=== PATIENT | female | born 1970 | race Caucasian/White ===

== ENCOUNTER → 2017-01-31 | Outpatient (CLI) | payer BC ==
--- NOTE | 2017-02-01 08:58 | MM ---
Reason for exam: screening (asymptomatic). Last mammogram was performed 1 year ago. Physical Findings: A clinical breast exam by your physician is recommended on an annual basis and results should be correlated with mammographic findings. MG Screening Mammo w CAD Bilateral CC and MLO view(s) were taken. Prior study comparison: January 31, 2016, bilateral MG screening mammo w CAD. January 07, 2002, bilateral diagnostic mammogram. The breast tissue is extremely dense which could obscure a lesion on mammography. There is no discrete abnormality. No significant changes when compared with prior studies. ASSESSMENT: Negative, BI-RAD 1 RECOMMENDATION: Routine screening mammogram of both breasts in 1 year.
== END | disposition home or self-care (01) ==
LOC: RADMAMWWP 09:40
PROVIDERS: ATTEND Family Medicine
DX: Z12.31 Encounter for screening mammogram for malignant neoplasm of breast (principal)

== ENCOUNTER → 2018-02-12 | Outpatient (CLI) | payer BC ==
--- NOTE | 2018-02-12 14:07 | MM ---
Reason for exam: additional evaluation requested from prior study. Last mammogram was performed 1 year ago. History: Family history of breast cancer in mother at age 66. Physical Findings: Nurse did not find any significant physical abnormalities on exam. MG 3D Diag Mammo W/Cad KIKO Bilateral CC and MLO view(s) were taken. Prior study comparison: January 31, 2017, bilateral MG screening mammo w CAD. January 31, 2016, bilateral MG screening mammo w CAD. The breast tissue is heterogeneously dense. This may lower the sensitivity of mammography. Benign appearing bilateral calcifications. No suspicious abnormality. Stable left superior breast asymmetry. No significant new findings when compared with previous films. These results were verbally communicated with the patient and result sheet given to the patient on 02/12/18. ASSESSMENT: Benign, BI-RAD 2 RECOMMENDATION: Routine screening mammogram of both breasts in 1 year.
== END | disposition home or self-care (01) ==
LOC: RADMAMWWP 13:03
PROVIDERS: ATTEND Family Medicine
DX: N63.10 Unspecified lump in the right breast, unspecified quadrant (principal)
CPT/HCPCS: 77062; 77066

== ENCOUNTER → 2023-03-20 | Outpatient (CLI) | payer BC ==
--- NOTE | 2023-03-21 20:14 | MM ---
Reason for Exam: Screening (asymptomatic). Last mammogram was performed 5 year(s) and 1 month(s) ago. Patient History: Menarche at age 11. First Full-Term at age 25. Postmenopausal. Patient has history of breast feeding. Maternal cousin had breast cancer at or over age 50. Mother had breast cancer, age 66. Risk Values: Abiola 5 year model risk: 2.2%. NCI Lifetime model risk: 16.1%. Prior Study Comparison: 01/31/2016 Bilateral Screening Mammogram, [facility]. 01/31/2017 Bilateral Screening Mammogram, [facility]. 02/12/2018 Bilateral Diagnostic Mammogram, [facility]. Tissue Density: The breast tissue is heterogeneously dense. This may lower the sensitivity of mammography. Findings: Analyzed By CAD. Asymmetric density central outer aspect of the right breast on the CC view middle depth is more defined. This may represent superimposition shadow but further evaluation is recommended. Otherwise, no significant change elsewhere within the breasts. Overall Assessment: Incomplete: need additional imaging evaluation, BI-RAD 0 Management: Special View Mammogram of both breasts. To include spot 3-D CC, 3-D CC rolled, and 3-D lateral views.. Targeted right breast ultrasound if any persisting abnormality. [facility] will attempt to contact patient to return for supplemental views and ultrasound if indicated. Electronically signed and approved by: Betito Higginbotham M.D. Radiologist
== END | disposition home or self-care (01) ==
LOC: RADMAMWWP 08:48
PROVIDERS: ATTEND Obstetrics & Gynecology
DX: Z12.31 Encounter for screening mammogram for malignant neoplasm of breast (principal); Z78.0 Asymptomatic menopausal state; Z80.3 Family history of malignant neoplasm of breast
CPT/HCPCS: 77063; 77067

== ENCOUNTER → 2023-03-27 | Outpatient (CLI) | payer BC ==
--- NOTE | 2023-03-27 10:31 | USB ---
Reason for Exam: Additional evaluation requested from abnormal screening. Patient History: Menarche at age 11. First Full-Term at age 25. Postmenopausal. Patient has history of breast feeding. Maternal cousin had breast cancer at or over age 50. Mother had breast cancer, age 66. Risk Values: Abiola 5 year model risk: 2.2%. NCI Lifetime model risk: 16.1%. Technique: Method: Targeted. Prior Study Comparison: 01/31/2017 Bilateral Screening Mammogram, [facility]. 02/12/2018 Bilateral Diagnostic Mammogram, [facility]. 03/20/2023 Bilateral MG 3D screening mammo w/cad, [facility]. Findings: The lateral section of the breast of the right breast, the axilla of the right breast and the retroareolar of the right breast were scanned. There is a hypoechoic area measuring 0.5 x 0.4 x 0.5 cm. This may be taller than wide contains an echogenic focus measuring 0.1 mm. This has some posterior shadowing. Corresponding calcifications within the breast in this region is not identified. No surgical clips are evident. Recommend ultrasound-guided core biopsy of this complex cyst. Overall Assessment: Suspicious, BI-RAD 4 Management: Ultrasound Core Biopsy of the right breast. A clinical breast exam by your physician is recommended on an annual basis and results should be correlated with mammographic findings. This exam should not preclude additional follow-up of suspicious palpable abnormalities. Results were given to the patient verbally at the time of exam. Electronically signed and approved by: Zachary Desai D.O. Radiologis
--- NOTE | 2023-03-27 10:34 | MM ---
Reason for Exam: Additional evaluation requested from abnormal screening. Last screening mammogram was performed less than 1 month ago. Patient History: Menarche at age 11. First Full-Term at age 25. Postmenopausal. Patient has history of breast feeding. Maternal cousin had breast cancer at or over age 50. Mother had breast cancer, age 66. Risk Values: Abiola 5 year model risk: 2.2%. NCI Lifetime model risk: 16.1%. Prior Study Comparison: 01/07/2002 Bilateral Diagnostic Mammogram, [facility]. 01/31/2016 Bilateral Screening Mammogram, [facility]. 01/31/2017 Bilateral Screening Mammogram, [facility]. 02/12/2018 Bilateral Diagnostic Mammogram, [facility]. 03/20/2023 Bilateral MG 3D screening mammo w/cad, [facility]. Tissue Density: Right: The breast tissue is heterogeneously dense. This may lower the sensitivity of mammography. Findings: Analyzed By CAD. Under compression the nodule appears to disperse. Minimal distortion may be present. It is unclear if this is related to prior lumpectomy. Recommend ultrasound for additional workup. Overall Assessment: Incomplete: need additional imaging evaluation, BI-RAD 0 Management: Diagnostic Breast Ultrasound of the right breast. A negative mammogram report should not preclude additional follow up of suspicious palpable abnormalities. Patient should continue monthly self breast exam. A clinical breast exam by your physician is recommended on an annual basis and results should be correlated with mammographic findings. Electronically signed and approved by: Juan Garcia DO
== END | disposition home or self-care (01) ==
LOC: RADMAMWWP 08:53
PROVIDERS: ATTEND Obstetrics & Gynecology
DX: R92.8 Other abnormal and inconclusive findings on diagnostic imaging of breast (principal); Z78.0 Asymptomatic menopausal state; Z80.3 Family history of malignant neoplasm of breast
CPT/HCPCS: 77061; 77065

== ENCOUNTER → 2023-04-18 | Outpatient (CLI) | payer BC ==
[2023-04-18 09:54] VITALS: BP 147/92; PULSE 61; RESP 16; TEMP 97.9
--- NOTE | 2023-04-18 10:25 | P.GSHP ---
History of Present Illness H&P Date: 04/18/23 Chief Complaint: abnormal right breast mammogram Siomara is a 51 year old white female seen in consultation for Dr. Basurto. She had a bilateral screening mammogrma on 03-20-23 which led to a right breast diagnositc mammogram and ultrasound on 03-27-23. This led to a r ight breast core biopsy on 04-10-23 which showed ADH. This was reviewed with DR. Zaragoza and ther is concern that the area biopsied may be separate form that seen on mammogram. She does not feel any lumps masses or nodules of concern in either breast. It had been about 5 years since her last mammogram. About 20 years ago she had a lump removed from her right breast it was benign. She has not had any recent trauma or infection in her breast. Caffeine: 3 cups coffee/day nicotine: none chocolate: none BCP: used them for about 10 years, stopped about 25 years ago hormones: none Family History: mother: breast cancer, diagnosed at 68 maternal cousin: breast cancer maternal uncle: bladder cancer maternal great aunt: breast cancer Hormonal History: menarche: 13 age at first : 15, breaset fed: yes menopause: last period 2020 hormones: none Surgical history: breast surgery right benign Medical History: none Social History: HEENT: Negative Alcohol: One drink per night; gin and tonic or wine Drugs: Negative - Constitutional Constitutional: Reports sweats - EENT Eyes: denies blurred vision, denies pain Ears: bilateral: tinnitus, deny: decreased hearing Ears, nose, mouth and throat: Reports headache, Denies sore throat - Breasts Breasts: bilateral: as per HPI - Cardiovascular Cardiovascular: Denies chest pain, Denies shortness of breath - Respiratory Respiratory: Denies cough, Denies 7 - Gastrointestinal Gastrointestinal: Denies abdominal pain, Denies diarrhea, Denies nausea, Denies vomiting - Genitourinary (Female) Genitourinary: Denies dysuria, Denies hematuria - Menstruation Menstruation: Reports postmenopausal - Musculoskeletal Comment: hand pain - Integumentary Integumentary: Denies pruritus, Denies rash - Neurological Neurological: Denies numbness, Denies weakness - Psychiatric Psychiatric: Reports anxiety, Reports depression - Endocrine Endocrine: Reports weight change - Hematologic/Lymphatic Comment: none - Allergic/Immunologic Allergic/Immunologic: Reports as per HPI Past Medical History Past Medical History: No Reported History History of Any Multi-Drug Resistant Organisms: None Reported Past Surgical History: Breast Surgery Additional Past Surgical History / Comment(s): breast excisional biopsy Right breast- benign Past Anesthesia/Blood Transfusion Reactions: No Reported Reaction Past Psychological History: Anxiety, Depression Smoking Status: Never smoker Past Alcohol Use History: Daily Additional Past Alcohol Use History / Comment(s): one drink nightly Past Drug Use History: None Reported Medications and Allergies Allergies Allergy/AdvReac Type Severity Reaction Status Date / Time codeine AdvReac Nausea Verified 04/18/23 09:44 Surgical - Exam Vital Signs Temp Pulse Resp BP Pulse Ox 97.9 F 61 16 147/92 98 04/18/23 09:46 04/18/23 09:46 04/18/23 09:46 04/18/23 09:46 04/18/23 09:46 - General no distress - Eyes normal ocular movement - ENT no hearing loss - Neck trachea midline - Respiratory normal respiratory effort - Cardiovascular Rhythm: regular Heart Sounds: normal: S1, S2 - Abdomen Abdomen: soft, non tender, no guarding, no rigid, no rebound - Integumentary normal turgor - Neurologic no disoriented, no combative - Musculoskeletal normal gait - Psychiatric oriented to time, oriented to person, oriented to place, speech is normal, memory intact Breast Exam: BRA: 34F inspection: Bilateral grade 2 ptosis Palpation: Right breast: Ecchymosis lateral aspect related to recent core biopsy, multiple positional exam no dominant masses or nodules of concern Right axilla: No adenopathy of concern Left breast: Multiple positional exam no dominant masses or nodules of concern Left axilla: No adenopathy of concern Results Mammogram and ultrasound reviewed personally with Dr. Higginbotham, there is concern that the clip is at the area of biopsy but discrete from the area initially seen on mammogram initiating the ultrasound is in the right breast no lesions of concern are noted in the left breast Assessment and Plan Assessment: Impression: Ultrasound core biopsy right breast atypical ductal hyperplasia Potential second spot of concern on mammogram on the right breast for which stereotactic core biopsy has been recommended Plan: Stereotactic 3-D core biopsy right breast Depending on results of this further recommendation to follow Secondary to the atypical ductal hyperplasia best Cipro at minimum be recommended for excision CC: Dr. Basurto
== END ==
LOC: WWCWWP 09:36
PROVIDERS: ATTEND Surgery
DX: N60.91 Unspecified benign mammary dysplasia of right breast (principal); Z80.3 Family history of malignant neoplasm of breast; Z88.5 Allergy status to narcotic agent

== ENCOUNTER → 2023-05-03 | Day surgery (SDC) | payer BC ==
--- NOTE | 2023-05-03 08:26 | P.PCN ---
Date of Procedure: 05/03/23 Preoperative Diagnosis: Radiographic abnormality right breast Postoperative Diagnosis: Same Procedure(s) Performed: Right breast stereotactic core biopsy Anesthesia: local Surgeon: Jackie Portillo Pathology: other (Breast tissue) Condition: stable Disposition: same day Indications for Procedure: Mammographic abnormality right breast Operative Findings: Radiographic specimen reveals 1 microcalcification Description of Procedure: The patient is a 52-year-old white female who is status post ultrasound-guided core biopsy of a radiographic abnormality in the right breast. There was question following the ultrasound core biopsy if this represented a mammographic abnormality originally seen and it was recommended that she undergo a 3-D stereo biopsy of the mammographic abnormality. The risks and benefits of the procedure were discussed with the patient. The patient was taken to the stereotactic core biopsy room. She was positioned in the 3-D stereo chair. A instrumentation and controls designer film was obtained. The instrumentation and controls designer film was reviewed with Dr. Redding and the area of concern was identified. The lesion was targeted. The breast was prepped using hexachlorophene. 20 mL of 1% lidocaine were used to anesthetize the area of concern. A 9-gauge vacuum-assisted core rotating biopsy needle was driven to the correct coordinates. A prefire film was obtained. The needle was noted to be in the correct location. The needle was fired. 6 core biopsy specimens were obtained. The patient began to feel faint and it was felt the procedure should be terminated. Secure marked topically clip was placed. Radiograph of the specimen did reveal one microcalcification. We will await results of the pathology. If there is still concern then needle localization of the area and resection of the operating room may be necessary. The patient will follow up next week.
--- NOTE | 2023-05-03 12:53 | MM ---
Date of Procedure: 05/03/23 Preoperative Diagnosis: Radiographic abnormality right breast Postoperative Diagnosis: Same Procedure(s) Performed: Right breast stereotactic core biopsy Anesthesia: local Surgeon: Jackie Portillo Pathology: other (Breast tissue) Condition: stable Disposition: same day Indications for Procedure: Mammographic abnormality right breast Operative Findings: Radiographic specimen reveals 1 microcalcification Description of Procedure: The patient is a 52-year-old white female who is status post ultrasound-guided core biopsy of a radiographic abnormality in the right breast. There was question following the ultrasound core biopsy if this represented a mammographic abnormality originally seen and it was recommended that she undergo a 3-D stereo biopsy of the mammographic abnormality. The risks and benefits of the procedure were discussed with the patient. The patient was taken to the stereotactic core biopsy room. She was positioned in the 3-D stereo chair. A commercial lines manager film was obtained. The commercial lines manager film was reviewed with Dr. Redding and the area of concern was identified. The lesion was targeted. The breast was prepped using hexachlorophene. 20 mL of 1% lidocaine were used to anesthetize the area of concern. A 9-gauge vacuum-assisted core rotating biopsy needle was driven to the correct coordinates. A prefire film was obtained. The needle was noted to be in the correct location. The needle was fired. 6 core biopsy specimens were obtained. The patient began to feel faint and it was felt the procedure should be terminated. Secure marked topically clip was placed. Radiograph of the specimen did reveal one microcalcification. We will await results of the pathology. If there is still concern then needle localization of the area and resection of the operating room may be necessary. The patient will follow up next week. MAL
== END ==
LOC: RADMAMWWP 07:09
PROVIDERS: ATTEND Surgery
DX: N60.21 Fibroadenosis of right breast (principal)
CPT/HCPCS: 88305; 19081; A4648

== ENCOUNTER → 2023-05-23 | Outpatient (CLI) | payer BC ==
--- NOTE | 2023-05-23 09:41 | P.PN ---
Subjective Progress Note Date: 05/23/23 Principal diagnosis: Atypical ductal hyperplasia right breast ultrasound-guided core biopsy/stereotactic core biopsy benign right breast History of Present Illness H&P Date: 05-23-23 Chief Complaint: abnormal right breast mammogram Siomara is a 51 year old white female seen in consultation for Dr. Basurto. She had a bilateral screening mammogrma on 03-20-23 which led to a right breast diagnositc mammogram and ultrasound on 03-27-23. This led to a right breast core biopsy on 04-10-23 which showed ADH. This was reviewed with DR. Zaragoza and there was concern that the area biopsied may be separate from that seen on mammogram. She was therefore recommended to undergo stereotactic core biopsy of a second area of concern. This was performed on [id number] and was felt to be benign concordant fibrocystic changes. She does not feel any lumps masses or nodules of concern in either breast. It had been about 5 years since her last mammogram. About 20 years ago she had a lump removed from her right breast it was benign. She has not had any recent trauma or infection in her breast. Caffeine: 3 cups coffee/day nicotine: none chocolate: none BCP: used them for about 10 years, stopped about 25 years ago hormones: none Family History: mother: breast cancer, diagnosed at 68 maternal cousin: breast cancer maternal uncle: bladder cancer maternal great aunt: breast cancer Hormonal History: menarche: 13 age at first : 15, breaset fed: yes menopause: last period 2020 hormones: none Surgical history: breast surgery right benign Medical History: none Social History: HEENT: Negative Alcohol: One drink per night; gin and tonic or wine Drugs: Negative - Constitutional Constitutional: Reports sweats - EENT Eyes: denies blurred vision, denies pain Ears: bilateral: tinnitus, deny: decreased hearing Ears, nose, mouth and throat: Reports headache, Denies sore throat - Breasts Breasts: bilateral: as per HPI - Cardiovascular Cardiovascular: Denies chest pain, Denies shortness of breath - Respiratory Respiratory: Denies cough - Gastrointestinal Gastrointestinal: Denies abdominal pain, Denies diarrhea, Denies nausea, Denies vomiting - Genitourinary (Female) Genitourinary: Denies dysuria, Denies hematuria - Menstruation Menstruation: Reports postmenopausal - Musculoskeletal Comment: hand pain - Integumentary Integumentary: Denies pruritus, Denies rash - Neurological Neurological: Denies numbness, Denies weakness - Psychiatric Psychiatric: Reports anxiety, Reports depression - Endocrine Endocrine: Reports weight change - Hematologic/Lymphatic Comment: none - Allergic/Immunologic Allergic/Immunologic: Reports as per HPI Past Medical History Past Medical History: No Reported History History of Any Multi-Drug Resistant Organisms: None Reported Past Surgical History: Breast Surgery Additional Past Surgical History / Comment(s): breast excisional biopsy Right breast- benign Past Anesthesia/Blood Transfusion Reactions: No Reported Reaction Past Psychological History: Anxiety, Depression Smoking Status: Never smoker Past Alcohol Use History: Daily Additional Past Alcohol Use History / Comment(s): one drink nightly Past Drug Use History: None Reported Medications and Allergies Allergies Allergy/AdvReac Type Severity Reaction Status Date / Time codeine AdvReac Nausea Verified 04/18/23 09:44 Objective - Constitutional General appearance: Present: cooperative - EENT Eyes: Present: EOMI ENT: Present: hearing grossly normal - Neck Neck: Present: normal ROM - Respiratory Respiratory: bilateral: CTA - Cardiovascular Rhythm: regular Heart sounds: normal: S1, S2 - Integumentary Integumentary: Present: normal turgor - Musculoskeletal Musculoskeletal: Present: gait normal - Psychiatric Psychiatric: Present: A&O x's 3, appropriate affect, intact judgment & insight - Additional findings Additional findings: Breast Exam: BRA: 34F inspection: Bilateral grade 2 ptosis Palpation: Right breast: No evidence of infection or hematoma at biopsy sites, no dominant masses or nodules of concern Right axilla: No adenopathy of concern Left breast: Multiple positional exam no dominant masses or nodules of concern Left axilla: No adenopathy of concern Assessment and Plan Assessment: Impression: Ultrasound-guided core biopsy right breast atypical ductal hyperplasia Sterotactic core biopsy right breast benign Plan: Right breast needle localization excisional biopsy butterfly coil clip area which was atypical ductal hyperplasia on core biopsy, possible onco-plastic tissue transfer Risk and benefits of the procedure discussed with the patient. Risks include but are not limited to bleeding, infection, reaction to the anesthetic. If the tissue specimen were to be discordant than possible further tissue acquisition may be necessary. CC: Dr. Cooper
[2023-05-23 09:46] VITALS: BP 142/93; PULSE 74; RESP 17; TEMP 97.9
== END ==
LOC: WWCWWP 09:13
PROVIDERS: ATTEND Surgery
DX: R92.8 Other abnormal and inconclusive findings on diagnostic imaging of breast (principal); N60.91 Unspecified benign mammary dysplasia of right breast; F32.A Depression, unspecified; F41.9 Anxiety disorder, unspecified; Z80.3 Family history of malignant neoplasm of breast; Z88.5 Allergy status to narcotic agent

== ENCOUNTER → 2023-07-05 | Outpatient (CLI) | payer BC ==
[2023-07-05 10:04] VITALS: BP 113/79; PULSE 65; RESP 18; TEMP 98
--- NOTE | 2023-07-05 10:40 | P.PN ---
Subjective Progress Note Date: 07/05/23 Atypical ductal hyperplasia right breast ultrasound-guided core biopsy/stereotactic core biopsy benign right breast History of Present Illness H&P Date:07-05-23 Chief Complaint: abnormal right breast mammogram Siomara is a 51 year old white female seen in consultation for Dr. Basurto. She had a bilateral screening mammogrma on 03-20-23 which led to a right breast diagnositc mammogram and ultrasound on 03-27-23. This led to a right breast core biopsy on 04-10-23 which showed ADH. This was reviewed with DR. Zaragoza and there was concern that the area biopsied may be separate from that seen on mammogram. She was therefore recommended to undergo stereotactic core biopsy of a second area of concern. This was performed on [id number] and was felt to be benign concordant fibrocystic changes. She does not feel any lumps masses or nodules of concern in either breast. It had been about 5 years since her last mammogram. About 20 years ago she had a lump removed from her right breast it was benign. She has not had any recent trauma or infection in her breast. Caffeine: 3 cups coffee/day nicotine: none chocolate: none BCP: used them for about 10 years, stopped about 25 years ago hormones: none Family History: mother: breast cancer, diagnosed at 68 maternal cousin: breast cancer maternal uncle: bladder cancer maternal great aunt: breast cancer Hormonal History: menarche: 13 age at first : 15, breaset fed: yes menopause: last period 2020 hormones: none Surgical history: breast surgery right benign Medical History: none Social History: HEENT: Negative Alcohol: One drink per night; gin and tonic or wine Drugs: Negative - Constitutional Constitutional: Reports sweats - EENT Eyes: denies blurred vision, denies pain Ears: bilateral: tinnitus, deny: decreased hearing Ears, nose, mouth and throat: Reports headache, Denies sore throat - Breasts Breasts: bilateral: as per HPI - Cardiovascular Cardiovascular: Denies chest pain, Denies shortness of breath - Respiratory Respiratory: Denies cough - Gastrointestinal Gastrointestinal: Denies abdominal pain, Denies diarrhea, Denies nausea, Denies vomiting - Genitourinary (Female) Genitourinary: Denies dysuria, Denies hematuria - Menstruation Menstruation: Reports postmenopausal - Musculoskeletal Comment: hand pain - Integumentary Integumentary: Denies pruritus, Denies rash - Neurological Neurological: Denies numbness, Denies weakness - Psychiatric Psychiatric: Reports anxiety, Reports depression - Endocrine Endocrine: Reports weight change - Hematologic/Lymphatic Comment: none - Allergic/Immunologic Allergic/Immunologic: Reports as per HPI Past Medical History Past Medical History: No Reported History History of Any Multi-Drug Resistant Organisms: None Reported Past Surgical History: Breast Surgery Additional Past Surgical History / Comment(s): breast excisional biopsy Right breast- benign Past Anesthesia/Blood Transfusion Reactions: No Reported Reaction Past Psychological History: Anxiety, Depression Smoking Status: Never smoker Past Alcohol Use History: Daily Additional Past Alcohol Use History / Comment(s): one drink nightly Past Drug Use History: None Reported Medications and Allergies Allergies Allergy/AdvReac Type Severity Reaction Status Date / Time codeine AdvReac Nausea Verified 04/18/23 09:44 Objective - Vital Signs Vital signs: Vital Signs Temp 98.0 F 07/05/23 09:40 Pulse 65 07/05/23 09:40 Resp 18 07/05/23 09:40 BP 113/79 07/05/23 09:40 Pulse Ox 97 07/05/23 09:40 FiO2 Intake & Output 07/04/23 07/05/23 07/05/23 18:59 06:59 18:59 Weight 74.843 kg - Constitutional General appearance: Present: cooperative - EENT Eyes: Present: EOMI ENT: Present: hearing grossly normal - Neck Neck: Present: normal ROM - Respiratory Respiratory: bilateral: CTA - Cardiovascular Heart sounds: normal: S1, S2 - Integumentary Integumentary: Present: normal turgor - Musculoskeletal Musculoskeletal: Present: gait normal - Psychiatric Psychiatric: Present: A&O x's 3, appropriate affect, intact judgment & insight - Additional findings Additional findings: Breast Exam: BRA: 34F inspection: Bilateral grade 2 ptosis Palpation: Right breast: No evidence of infection or hematoma at biopsy sites, no dominant masses or nodules of concern Right axilla: No adenopathy of concern Left breast: Multiple positional exam no dominant masses or nodules of concern Left axilla: No adenopathy of concern Assessment and Plan Assessment: Impression: Ultrasound-guided core biopsy right breast atypical ductal hyperplasia Sterotactic core biopsy right breast benign concordant Plan: Right breast needle localization excisional biopsy butterfly coil clip area which was atypical ductal hyperplasia on core biopsy, possible onco-plastic tissue transfer Risk and benefits of the procedure discussed with the patient. Risks include but are not limited to bleeding, infection, reaction to the anesthetic. If the tissue specimen were to be discordant than possible further tissue acquisition may be necessary. CC: Dr. Cooper Additional CC's: Jose A Cooper
== END ==
LOC: WWCWWP 09:14
PROVIDERS: ATTEND Surgery
DX: N60.91 Unspecified benign mammary dysplasia of right breast (principal); R92.8 Other abnormal and inconclusive findings on diagnostic imaging of breast; Z80.3 Family history of malignant neoplasm of breast; Z88.5 Allergy status to narcotic agent

== ENCOUNTER 2023-07-16 07:20 | Day surgery (SDC) | payer BC ==
[~2023-07-16 07:20] MED LIST: HEPARIN SODIUM,PORCINE 5,000 UNIT/ML 1 ML VIAL SQ PRN
[2023-07-16] MEDS ORDERED: LACTATED RINGERS 1,000 ML IV SCH (07:31)
[2023-07-16] MEDS ORDERED: HYDROmorphone 0.5 MG/0.5 ML SYRINGE IVP PRN (07:31)
[2023-07-16] MEDS ORDERED: ONDANSETRON 4 MG/2 ML VIAL IVP ONE ×3 (07:31→09:56)
[2023-07-16] MEDS ORDERED: fentaNYL (PF) 50 MCG/ML 2 ML AMP IV PRN (07:31)
[2023-07-16] MEDS ORDERED: DEXAMETHASONE SOD PHOSPHATE 4 MG/ML 1 ML VIAL IV ONE (07:31)
[2023-07-16] MEDS ORDERED: MIDAZOLAM 2 MG/2 ML VIAL IV PRN (07:31)
[2023-07-16] MEDS ORDERED: LIDOCAINE 1% (10MG/ML) FOR IV START INTRADERMA PRN (07:31)
[2023-07-16] MEDS ORDERED: ALPRAZolam 0.5 MG TAB ONE (07:56)
[2023-07-16] MEDS ORDERED: ALPRAZolam 0.5 MG TAB PO ONE (08:10)
[2023-07-16] MEDS ORDERED: LIDOCAINE 1% INJ 10MG/ML (20 ML MDV) SQ ONE (08:48)
[2023-07-16 09:50] VITALS: RESP 16
[2023-07-16] MEDS ORDERED: DEXAMETHASONE SOD PHOSPHATE 4 MG/ML 1 ML VIAL IVP ONE (09:56)
[2023-07-16] MEDS ORDERED: PHENYLEPHRINE-0.9% NACL SYG 1,000 MCG/10 ML SYRINGE ONE (10:07)
[2023-07-16] MEDS ORDERED: LIDOCAINE 1% INJ 10MG/ML (20 ML MDV) ONE (10:07)
[2023-07-16] MEDS ORDERED: fentaNYL (PF) 50 MCG/ML 2 ML AMP ONE (10:07)
[2023-07-16] MEDS ORDERED: MIDAZOLAM 2 MG/2 ML VIAL ONE (10:07)
[2023-07-16] MEDS ORDERED: PROPOFOL 10 MG/ML 20 ML VIAL IV ONE (10:07)
[2023-07-16] MEDS ORDERED: SUCCINYLCHOLINE CHLORIDE 200 MG/10 ML VIAL IV ONE (10:07)
--- NOTE | 2023-07-16 11:33 | P.OP ---
Date of Procedure: 07/16/23 Preoperative Diagnosis: Atypical ductal hyperplasia on core biopsy right breast Postoperative Diagnosis: Same Procedure(s) Performed: Right breast needle localization lumpectomy, onco-plastic tissue transfer 30 cm Anesthesia: [place] Surgeon: Jackie Portillo Estimated Blood Loss (ml): 5 IV fluids (ml): 600 Pathology: other (Breast tissue, radiographic specimen reveals clip of concern) Condition: stable Disposition: same day Indications for Procedure: Biopsy revealing atypical ductal hyperplasia Operative Findings: Dense breast tissue Description of Procedure: The patient underwent an ultrasound-guided core biopsy which revealed atypical ductal hyperplasia in the right breast. Needle localization of this area was performed. During the procedure the patient fainted and the first needle was met in the correct location. Therefore 2 needles were placed. The second needle was in close proximity to the lesion of concern. The patient was then brought to the operative suite. Following induction of anesthesia the right breast was prepped and draped in a sterile fashion. An incision was made and carried down to the tip of the anterior needle. Surrounding tissue was excised. The specimen was 5 x 2 cm. Hemostasis was attained using electrocautery device. Titanium clips were placed to martin the cavity. Both needles were removed with the specimen. Surgicel in powder form was placed. A superior pillar 5 x 3 cm was developed. An inferior pillar 5 x 1 cm was developed. The pillars were brought together to close the defect. Total tissue transfer was 30 cm. Subcutaneous tissue was brought together using 3-0 Vicryl suture. The skin was closed using 4-0 Monocryl. The patient tolerated the procedure in stable condition. Specimen was painted for orientation. Radiograph of the specimen revealed the area of concern had been adequately removed. All instrument and sponge counts were correct at the end of the case. The patient will follow-up with Dr. Colvin.
[2023-07-16 12:10] VITALS: TEMP 97
[2023-07-16] MEDS ORDERED: HYDROcodone/APAP 5-325MG 1 EACH TAB ONE (12:43)
[2023-07-16] MEDS ORDERED: HYDROcodone/APAP 5-325MG 1 EACH TAB PO ONE (12:44)
[2023-07-16 13:07] VITALS: BP 126/80; PULSE 70
== END 2023-07-16 13:26 | disposition home or self-care (01) ==
LOC: OR 07:20
PROVIDERS: ATTEND Surgery
DX: N60.21 Fibroadenosis of right breast (principal)
CPT/HCPCS: 88307; 76098; 19281; C1819; J2250; J0330; J1644; J1100; J0690; J2405; J2001; J3010; J2704; J2371

== ENCOUNTER → 2023-07-25 | Outpatient (CLI) | payer BC ==
--- NOTE | 2023-07-25 14:37 | P.PN ---
Progress Note - Text Progress Note Date: 07/25/23 Siomara is status post right breast needle localization and lumpectomy on 07-16-23. Her pathology was benign/concordant. She tolerated the biopsy without difficulty. Physical Exam: lungs: clear : Regular rate and rhythm Incision: Clean and dry Impression: Patient doing well postoperatively Biopsy benign and concordant Plan: Right breast mammogram in 6 months CC: DR. Cooper
[2023-07-25 15:18] VITALS: BP 120/79; PULSE 65; RESP 16; TEMP 98.3
== END ==
LOC: WWCWWP 13:44
PROVIDERS: ATTEND Surgery
DX: N63.10 Unspecified lump in the right breast, unspecified quadrant (principal); Z88.5 Allergy status to narcotic agent

== ENCOUNTER → 2024-01-29 | Outpatient (CLI) | payer BC ==
--- NOTE | 2024-01-29 11:01 | MM ---
Reason for Exam: Follow-up at short interval from prior study. Last screening mammogram was performed 10 month(s) ago. Patient History: Menarche at age 11. First Full-Term at age 25. Postmenopausal. Patient has history of breast feeding. Previous Atypical Ductal Hyperplasia at age 52. 07/16/2023, Benign MG pre op needle loc RT on the right side. 05/03/2023, Benign MG stereo VAD BX RT on the right side. 04/10/2023, High risk US biopsy breast VAD RT on the right side. Maternal cousin had breast cancer at or over age 50. Mother had breast cancer, age 66. Risk Values: Abiola 5 year model risk: 6.5%. NCI Lifetime model risk: 38.9%. Prior Study Comparison: 01/31/2017 Bilateral Screening Mammogram, [facility]. 03/20/2023 Bilateral MG 3D screening mammo w/cad, [facility]. 03/27/2023 Right MG 3D work up w/cad RT, [facility]. 04/10/2023 Right MG diagnostic mammo RT wo CAD, [facility]. Tissue Density: The breasts are heterogeneously dense, which may obscure small masses. Findings: Analyzed By CAD. The pattern is symmetrical. Postsurgical changes are within the right breast. Multiple surgical clips are present. No significant interval change is evident. No suspicious groups of microcalcifications, spiculated or lobular masses, architectural distortion or other secondary signs of malignancy are mammographically apparent. Overall Assessment: Benign, BI-RAD 2 Management: Diagnostic Mammogram of both breasts in 1 year. A negative mammogram report should not preclude additional follow up of suspicious palpable abnormalities. Patient should continue monthly self breast exam. A clinical breast exam by your physician is recommended on an annual basis and results should be correlated with mammographic findings. Note on Abiola scores and lifetime risk: 1. A Abiola score greater than 3% is considered moderate risk. If this is the case, consider specialist referral to assess eligibility for a risk reducing agent. 2. If overall lifetime risk for the development of breast cancer is 20% or higher, the patient may qualify for future screening with alternating mammogram and breast MRI. Electronically signed and approved by: Zachary Desai D.O. Radiologis
== END | disposition home or self-care (01) ==
LOC: RADMAMWWP 10:36
PROVIDERS: ATTEND Surgery
DX: R92.333 Mammographic heterogeneous density, bilateral breasts (principal); R92.8 Other abnormal and inconclusive findings on diagnostic imaging of breast; Z78.0 Asymptomatic menopausal state; Z80.3 Family history of malignant neoplasm of breast
CPT/HCPCS: 77062; 77066

== ENCOUNTER → 2024-01-31 | Outpatient (CLI) | payer BC ==
[2024-01-31 14:29] VITALS: BP 133/78; PULSE 74; RESP 16; TEMP 97.9
--- NOTE | 2024-01-31 15:01 | P.PN ---
Subjective Progress Note Date: 01/31/24 Principal diagnosis: atypical ductal hyperplasia Atypical ductal hyperplasia right breast ultrasound-guided core biopsy/stereotactic core biopsy benign right breast History of Present Illness H&P Date: 05-23-23 Chief Complaint: abnormal right breast mammogram Siomara is a 51 year old white female seen in consultation for Dr. Basurto. She had a bilateral screening mammogrma on 03-20-23 which led to a right breast diagnositc mammogram and ultrasound on 03-27-23. This led to a right breast core biopsy on 04-10-23 which showed ADH. This was reviewed with DR. Zaragoza and there was concern that the area biopsied may be separate from that seen on mammogram. She was therefore recommended to undergo stereotactic core biopsy of a second area of concern. This was performed on [id number] and was felt to be benign concordant fibrocystic changes. She does not feel any lumps masses or nodules of concern in either breast. It had been about 5 years since her last mammogram. About 20 years ago she had a lump removed from her right breast it was benign. She has not had any recent trauma or infection in her breast. right needle localization and lumpectomy on 07-16-23 benign fibrocystic changes including previous biopsy site bilateral mammogram [facility] [id number] personally reviewed and discussed with Dr. Zaragoza she does not complain of any new lumps masses or nodules of concern in either breast. We have discussed chemoprophylaxis and she is going to meet with medical oncology Abiola Risk: 5 year risk: 6.55 lifetime risk: 38.9% Caffeine: 3 cups coffee/day nicotine: none chocolate: none BCP: used them for about 10 years, stopped about 25 years ago hormones: none Family History: mother: breast cancer, diagnosed at 68 maternal cousin: breast cancer maternal uncle: bladder cancer maternal great aunt: breast cancer Hormonal History: menarche: 13 age at first : 15, breast fed: yes menopause: last period 2020 hormones: none Surgical history: breast surgery right benign Medical History: none Social History: HEENT: Negative Alcohol: One drink per night; gin and tonic or wine Drugs: Negative - Constitutional Constitutional: Reports sweats - EENT Eyes: denies blurred vision, denies pain Ears: bilateral: tinnitus, deny: decreased hearing Ears, nose, mouth and throat: Reports headache, Denies sore throat - Breasts Breasts: bilateral: as per HPI - Cardiovascular Cardiovascular: Denies chest pain, Denies shortness of breath - Respiratory Respiratory: Denies cough - Gastrointestinal Gastrointestinal: Denies abdominal pain, Denies diarrhea, Denies nausea, Denies vomiting - Genitourinary (Female) Genitourinary: Denies dysuria, Denies hematuria - Menstruation Menstruation: Reports postmenopausal - Musculoskeletal Comment: hand pain - Integumentary Integumentary: Denies pruritus, Denies rash - Neurological Neurological: Denies numbness, Denies weakness - Psychiatric Psychiatric: Reports anxiety, Reports depression - Endocrine Endocrine: Reports weight change - Hematologic/Lymphatic Comment: none - Allergic/Immunologic Allergic/Immunologic: Reports as per HPI Past Medical History Past Medical History: No Reported History History of Any Multi-Drug Resistant Organisms: None Reported Past Surgical History: Breast Surgery Additional Past Surgical History / Comment(s): breast excisional biopsy Right breast- benign Past Anesthesia/Blood Transfusion Reactions: No Reported Reaction Past Psychological History: Anxiety, Depression Smoking Status: Never smoker Past Alcohol Use History: Daily Additional Past Alcohol Use History / Comment(s): one drink nightly Past Drug Use History: None Reported Medications and Allergies Allergies Allergy/AdvReac Type Severity Reaction Status Date / Time codeine AdvReac Nausea Verified 04/18/23 09:44 Objective - Vital Signs Vital signs: Vital Signs Temp 97.9 F 01/31/24 14:27 Pulse 74 01/31/24 14:27 Resp 16 01/31/24 14:27 BP 133/78 01/31/24 14:27 Pulse Ox 98 01/31/24 14:27 FiO2 Intake & Output 01/30/24 01/31/24 01/31/24 18:59 06:59 18:59 Weight 75.296 kg - Constitutional General appearance: Present: cooperative - EENT Eyes: Present: EOMI ENT: Present: hearing grossly normal - Neck Neck: Present: normal ROM - Respiratory Respiratory: bilateral: CTA - Cardiovascular Heart sounds: normal: S1, S2 - Integumentary Integumentary: Present: normal turgor - Musculoskeletal Musculoskeletal: Present: gait normal - Psychiatric Psychiatric: Present: A&O x's 3, appropriate affect, intact judgment & insight - Additional findings Additional findings: Breast Exam: BRA: 34F inspection: Bilateral grade 2 ptosis Palpation: Right breast: multi - positional exam no dominant masses or nodules of concern, well-healed scar from prior surgery Right axilla: No adenopathy of concern Left breast: Multiple positional exam no dominant masses or nodules of concern Left axilla: No adenopathy of concern Assessment and Plan Assessment: Impression: ADH left breast fibrocystic breast changes Abiola Risk: 5 year: 6.5% lifetime risk: 38.9% Plan: appointment with medical oncology consider chemoprophylaxis Billateral mammogram in one year MRI in 6 months CC: Dr. Cooper
== END ==
LOC: WWCWWP 13:31
PROVIDERS: ATTEND Surgery
DX: N60.92 Unspecified benign mammary dysplasia of left breast (principal); N60.11 Diffuse cystic mastopathy of right breast; Z80.3 Family history of malignant neoplasm of breast; Z88.5 Allergy status to narcotic agent

== ENCOUNTER 2024-04-10 11:28 | Day surgery (SDC) | payer BC ==
[2024-04-08 14:30] VITALS: BMI 25.5
[~2024-04-10 11:28] MED LIST changes: -HEPARIN SODIUM,PORCINE 5,000 UNIT/ML 1 ML VIAL SQ PRN; +LIDOCAINE 1% (10MG/ML) FOR IV START INTRADERMA PRN
[2024-04-10 12:40] VITALS: TEMP 97.1
[2024-04-10] MEDS: LACTATED RINGERS 1,000 ML IV SCH (12:48)
[2024-04-10] MEDS: IV FLUID CONTINUATION 1,000 ML IV ONE (12:49)
[2024-04-10] MEDS ORDERED: PROPOFOL 10 MG/ML 20 ML VIAL IV ONE (13:12)
--- NOTE | 2024-04-10 13:36 | P.PCN ---
Date of Procedure: 04/10/24 Procedure(s) Performed: BRIEF HISTORY: Patient is a 53-year-old pleasant white female scheduled for an elective colonoscopy as a part of screening for colon cancer. PROCEDURE PERFORMED: Colonoscopy. PREOPERATIVE DIAGNOSIS: Screening for colon cancer. IV sedation per Anesthesia. PROCEDURE: After informed consent was obtained, the patient, was brought into the endoscopy unit. IV sedation was administered by Anesthesia under continuous monitoring. Digital rectal examination was normal. Initially the Olympus CF-160 flexible video colonoscope was then inserted in the rectum, gradually advanced into the cecum without any difficulty. Careful examination was performed as the scope was gradually being withdrawn. Ileocecal valve and the appendiceal orifice were visualized and appeared normal. Prep was excellent. Mucosa of the cecum, ascending colon, transverse colon, descending colon, sigmoid colon, and rectum appeared normal. Retroflexion was performed in the rectum and no lesions were seen. The patient tolerated the procedure well. IMPRESSION: Normal-appearing colon from rectum to cecum with no evidence of colorectal neoplasia. RECOMMENDATIONS: Findings of this examination were discussed with the patient as well as her family. She was advised to have repeat screening colonoscopy in 10 years
[2024-04-10 13:55] VITALS: BP 126/79; PULSE 66; RESP 18
== END 2024-04-10 14:14 | disposition home or self-care (01) ==
LOC: ORWHC2ENDO 11:28
PROVIDERS: ATTEND Internal Medicine Gastroenterology
DX: Z12.11 Encounter for screening for malignant neoplasm of colon
CPT/HCPCS: 45378